=== PATIENT | male | born 1980 | race Caucasian/White ===

== ENCOUNTER 2019-02-20 09:12 | Emergency (ER) | payer SELFPAY ==
[2019-02-20 10:01] LABS: Influenza B Molecular POSITIVE (Negative)
--- NOTE | 2019-02-20 10:25 | UC ---
General HPI - HPI Summary HPI Summary: Past 12-24 hours, bodyaches, night sweats, dry cough. He was around his sister who had the flu. no congestion. No N/V/D. Had the flu last year and did not tolerate tamiflu - got nauseated. Good PO. No CP, NO SOB. Tolerating PO. Meds : none. No smoking. Did not get a flu shot - History of Current Complaint Chief Complaint: UCGeneralIllness Stated Complaint: FLU LIKE SYMPTOMS Time Seen by Provider: 02/20/19 09:43 Pain Intensity: 3 - Allergy/Home Medications Allergies/Adverse Reactions: Allergies Allergy/AdvReac Type Severity Reaction Status Date / Time No Known Allergies Allergy Verified 02/20/19 09:50 PMH/Surg Hx/FS Hx/Imm Hx Previously Healthy: Yes - Surgical History Surgical History: None - Social History Alcohol Use: Occasionally Substance Use Type: None Smoking Status (MU): Never Smoked Tobacco Review of Systems All Other Systems Reviewed And Are Negative: Yes Constitutional: Positive: Fever, Chills ENT: Positive: Sore Throat, Nasal Discharge Respiratory: Positive: Cough Gastrointestinal: Positive: Negative Physical Exam Triage Information Reviewed: Yes Appearance: Well-Appearing Vital Signs: Initial Vital Signs Temp 98.5 F 02/20/19 09:46 Pulse 80 02/20/19 09:46 Resp 18 02/20/19 09:46 BP 132/80 02/20/19 09:46 Pulse Ox 100 02/20/19 09:46 ENT: Positive: Pharyngeal erythema, Nasal congestion, TMs normal Neck: Positive: Nontender, No Lymphadenopathy Respiratory: Positive: Lungs clear, Normal breath sounds Cardiovascular: Positive: RRR, No Murmur Course/Dx - Course Course Of Treatment: Positive flu b Nontoxic appearing Patient hesitant to take tamilfu due to adverse side effects last year Rest, fluids, ibuprofen as needed for pain/fever Consider taking tamiflu before 48 hours of symptom onset Supportive care If symptoms persist or worsen, recommend follow up with PCP or return to urgent care - Diagnoses Provider Diagnosis: Influenza Discharge ED - Sign-Out/Discharge Documenting (check all that apply): Patient Departure All imaging exams completed and their final reports reviewed: No Studies - Discharge Plan Condition: Fair Disposition: HOME Prescriptions: Oseltamivir CAP* [Tamiflu CAP*] 75 mg PO BID #10 cap Patient Education Materials: Influenza (ED) Referrals: No Primary Care Phys,NOPCP [Primary Care Provider] - Additional Instructions: Rest, fluids, ibuprofen as needed for pain/fever Consider taking tamiflu within 48 hours of symptom onset Supportive care If symptoms persist or worsen, recommend follow up with PCP or return to urgent care - Billing Disposition and Condition Condition: FAIR Disposition: Home
== END 2019-02-20 10:33 | disposition home or self-care (01) ==
LOC: UCCORT 09:12
DX: J11.1 Influenza due to unidentified influenza virus with other respiratory manifestations (principal)
CPT/HCPCS: 99202; G0463